=== PATIENT | male | born 1990 | race Hispanic/Latino ===

== ENCOUNTER 2018-02-28 14:28 | Emergency (ER) | payer OTHER ==
[2018-02-28] MEDS ORDERED: IBUPROFEN 800 MG TAB ONE (14:50)
== END 2018-02-28 15:58 | disposition home or self-care (01) ==
LOC: EDH 14:28
DX: J10.1 Influenza due to other identified influenza virus with other respiratory manifestations (principal)
CPT/HCPCS: 87804

== ENCOUNTER 2019-08-10 16:06 | Emergency (ER) | payer OTHER ==
[2019-08-10 16:50] LABS: BASOPHILS % (AUTO) 0.2 % (0.0-5.0); EOSINOPHILS % (AUTO) 0.5 % (0.0-8.0); HEMATOCRIT 41.9 % (42-54); LYMPHOCYTES % (AUTO) 8.9 % (21.0-51.0); MEAN CORPUSCULAR HEMOGLOBIN 31.1 pg (27.0-33.0); MEAN CORPUSCULAR HGB CONC 34.1 g/dL (32.0-36.0); MEAN CORPUSCULAR VOLUME 91.1 fL (79-99); MONOCYTES % (AUTO) 9.9 % (3.0-13.0); NEUTROPHILS % (AUTO) 80.2 % (40.0-77.0); PLATELET COUNT (AUTO) 213 K/uL (130-400); RED CELL DISTRIBUTION WIDTH 12.5 % (11.0-15.5); WHITE BLOOD COUNT (AUTO) 10.7 K/uL (4.8-10.8)
[2019-08-10 17:02] LABS: CREATININE 1.2 mg/dL (0.5-1.5); POTASSIUM 3.6 mmol/L (3.5-5.1)
[2019-08-10 17:06] LABS: ALBUMIN 3.8 g/dL (3.5-5.0); BILIRUBIN,TOTAL 0.4 mg/dL (0.2-1.0); TOTAL PROTEIN, SERUM 7.4 g/dL (6.0-8.3)
[2019-08-10] MEDS ORDERED: DICYCLOMINE HCL 10 MG/ML 2ML AMP IM ONE (17:46)
== END 2019-08-10 19:00 | disposition home or self-care (01) ==
LOC: EDH 16:06
DX: R10.10 Upper abdominal pain, unspecified (principal); J02.9 Acute pharyngitis, unspecified; Z20.828 Contact with and (suspected) exposure to other viral communicable diseases; R11.0 Nausea
CPT/HCPCS: 36415; 80053; 83690; 85025; 87880; 96372; 99283; J0500; J7030; U0003

== ENCOUNTER 2020-07-04 20:22 | Emergency (ER) | payer OTHER ==
[2020-07-06 17:09] LABS: CHLAMYDIA DNA N.A.AMPLIFY Negative (Negative)
== END 2020-07-04 22:01 | disposition home or self-care (01) ==
LOC: EDH 20:22
DX: A63.8 Other specified predominantly sexually transmitted diseases (principal); Z90.49 Acquired absence of other specified parts of digestive tract
CPT/HCPCS: 36415; 86701; 87390; 87486; 87529; 87797